=== PATIENT | female | born 2000 | race African-American/Black ===

== ENCOUNTER 2018-02-13 16:10 | Emergency (ER) | payer OTHER ==
[~2018-02-13] VITALS: Ht 167.6 cm; Wt 74.8 kg
[~2018-02-13 16:10] MED LIST: ABILIFY 5 MG TAB5 MG PO; BACTRIM DS TAB1 EACH PO; DIFLUCAN150 M1 PO; DOXYCYCLINE 10100 MG PO; FLAGYL500 MG PO; IBUPROFEN 800800 M1 PO; KEFLEX500 M1 PO; LEVAQUIN 500 M500 M2 PO; MEDROLDOSEPACK PO; NAPROSYN500 MG PO; PROAIR HFA8.5 GM IH; SEROQUEL 25 MG25 M1 PO; ZOFRAN ODT4 MG PO; ZPAK PO
[2018-02-13 16:27] LABS: URINE BILIRUBIN NEGATIVE (Negative); URINE BLOOD NEGATIVE (Negative); URINE CLARITY CLEAR; URINE COLOR YELLOW; URINE GLUCOSE-RANDOM NEGATIVE (Negative); URINE KETONES NEGATIVE (Negative); URINE LEUKOCYTES TRACE (Negative); URINE NITRITE NEGATIVE (Negative); URINE PROTEIN NEGATIVE (Negative); URINE UROBILINOGEN 0.2 E.U./dl (0.2-1.0)
[2018-02-13 16:44] LABS: BACTERIA 1-9 Few /HPF (None Seen); CASTS None Seen /LPF (None Seen); CRYSTALS None Seen /LPF (None Seen); SQUAMOUS 4-10 Moderate /LPF (0-3); URINE RBC 0-2 Rare /HPF (0-2); URINE WBC 0-5 Rare /HPF (0-5)
[2018-02-13] MEDS ORDERED: NABUMETONE 750750 M1 PO (17:13)
[2018-02-13] MEDS ORDERED: KEFLEX500 M1 PO (17:14)
[2018-02-13 17:32] VITALS: BP 113/66
== END 2018-02-13 17:33 | disposition home or self-care (01) ==
LOC: M.ERS 16:10
PROVIDERS: Nurse Practitioner Family
DX: N72 Inflammatory disease of cervix uteri (principal); S46.912A Strain of unspecified muscle, fascia and tendon at shoulder and upper arm level, left arm, initial encounter; X58.XXXA Exposure to other specified factors, initial encounter; Y93.89 Activity, other specified; Y92.89 Other specified places as the place of occurrence of the external cause; Y99.8 Other external cause status

== ENCOUNTER 2018-05-17 08:19 | Emergency (ER) | payer OTHER ==
[~2018-05-17] VITALS: Ht 167.6 cm; Wt 74.8 kg
[~2018-05-17 08:19] MED LIST changes: +NABUMETONE 750750 M1 PO
[2018-05-17 08:37] LABS: URINE BILIRUBIN NEGATIVE (Negative); URINE BLOOD NEGATIVE (Negative); URINE CLARITY CLEAR; URINE COLOR YELLOW; URINE GLUCOSE-RANDOM NEGATIVE (Negative); URINE KETONES NEGATIVE (Negative); URINE LEUKOCYTES-REFLEX 1+ (Negative); URINE NITRITE-REFLEX NEGATIVE (Negative); URINE PROTEIN NEGATIVE (Negative); URINE SPECIFIC GRAVITY 1.025 (1.005-1.030); URINE UROBILINOGEN 0.2 E.U./dl (0.2-1.0)
[2018-05-17 08:44] LABS: BACTERIA-REFLEX 1-9 Few /HPF (None Seen); CASTS None Seen /LPF (None Seen); MUCUS 4-6 Moderate strn/LPF (None Seen); SQUAMOUS 4-10 Moderate /LPF (0-3); URINE RBC 0-2 Rare /HPF (0-2); URINE WBC-REFLEX 0-5 Rare /HPF (0-5)
[2018-05-17 08:45] LABS: CRYSTALS None Seen /LPF (None Seen)
[2018-05-17] MEDS ORDERED: BACTRIM DS TAB1 EACH PO (09:15)
[2018-05-17 09:26] VITALS: BP 103/47
== END 2018-05-17 09:26 | disposition home or self-care (01) ==
LOC: M.ERS 08:19
PROVIDERS: Emergency Medicine Emergency Medical Services
DX: N39.0 Urinary tract infection, site not specified (principal); J45.909 Unspecified asthma, uncomplicated; F32.9 Major depressive disorder, single episode, unspecified; Z91.040 Latex allergy status; Z88.8 Allergy status to other drugs, medicaments and biological substances

== ENCOUNTER 2018-07-26 10:44 | Emergency (ER) | payer OTHER ==
[~2018-07-26] VITALS: Ht 167.6 cm; Wt 77.1 kg
[2018-07-26 11:05] LABS: URINE BILIRUBIN NEGATIVE (Negative); URINE BLOOD 3+ (Negative); URINE CLARITY CLEAR; URINE COLOR YELLOW; URINE GLUCOSE-RANDOM NEGATIVE (Negative); URINE KETONES NEGATIVE (Negative); URINE LEUKOCYTES-REFLEX NEGATIVE (Negative); URINE NITRITE-REFLEX NEGATIVE (Negative); URINE PROTEIN NEGATIVE (Negative); URINE SPECIFIC GRAVITY >= 1.030 (1.005-1.030); URINE UROBILINOGEN 0.2 E.U./dl (0.2-1.0)
[2018-07-26 11:18] LABS: SQUAMOUS >10 Many /LPF (0-3); URINE RBC >20 Many /HPF (0-2); URINE WBC-REFLEX 0-5 Rare /HPF (0-5)
[2018-07-26 11:19] LABS: CASTS None Seen /LPF (None Seen); CRYSTALS None Seen /LPF (None Seen); MUCUS >6 Heavy strn/LPF (None Seen)
[2018-07-26 11:32] LABS: ABSOLUTE LYMPHOCYTES 1.7 thou/uL (0.8-5.3); ABSOLUTE MONOCYTES 0.2 thou/uL (0.0-1.2); ABSOLUTE NEUTROPHILS 1.5 thou/uL (1.6-8.1); BASOPHILS 1.1 %; EOSINOPHILS 0.6 %; HEMATOCRIT 36.1 % (37.0-47.0); LYMPHOCYTES 47.8 %; MCH 28.5 pg (26.0-34.0); MCHC 33.2 g/dL (28.0-37.0); MCV 85.7 fL (80.0-100.0); MONOCYTES 7.1 %; MPV 7.9 fl. (7.2-11.1); NUCLEATED RBCS 0 /100WBC; PLATELET COUNT* 291 thou/uL (150-400); POLYS 43.4 %; RBC 4.22 mil/uL (4.20-5.00); RDW-CV 13.9 % (10.5-14.5); WBC 3.5 thou/uL (4.0-11.0)
[2018-07-26 11:43] LABS: ALBUMIN 3.6 g/dL (3.4-5.0); CALCIUM 8.9 mg/dL (8.5-10.1); CREATININE 0.8 mg/dL (0.6-1.3); POTASSIUM 3.7 mmol/L (3.5-5.1); TOTAL BILIRUBIN 0.2 mg/dL (<0.1-1.0)
[2018-07-26] MEDS ORDERED: NAPROSYN500 MG PO (12:02)
[2018-07-26] MEDS ORDERED: PROVERA10 MG PO (12:02)
[2018-07-26 12:04] LABS: APTT 28.6 Seconds (25.0-31.3); PROTIME 10.6 Seconds (9.20-11.50)
[2018-07-26 12:16] VITALS: BP 116/72
== END 2018-07-26 12:15 | disposition home or self-care (01) ==
LOC: M.ERS 10:44
PROVIDERS: Physician Assistant
DX: N93.9 Abnormal uterine and vaginal bleeding, unspecified (principal); J45.909 Unspecified asthma, uncomplicated; F32.9 Major depressive disorder, single episode, unspecified; Z91.040 Latex allergy status; Z88.1 Allergy status to other antibiotic agents; Z88.8 Allergy status to other drugs, medicaments and biological substances

== ENCOUNTER 2018-08-31 13:12 | Emergency (ER) | payer OTHER ==
[~2018-08-31] VITALS: Ht 167.6 cm; Wt 81.7 kg
[~2018-08-31 13:12] MED LIST changes: +PROVERA10 MG PO
[2018-08-31] MEDS ORDERED: IBUPROFEN 800800 M1 PO (15:32)
[2018-08-31 15:45] VITALS: BP 121/63
== END 2018-08-31 15:45 | disposition home or self-care (01) ==
LOC: M.ERS 13:12
DX: S93.491A Sprain of other ligament of right ankle, initial encounter (principal); S30.0XXA Contusion of lower back and pelvis, initial encounter; J45.909 Unspecified asthma, uncomplicated; F32.9 Major depressive disorder, single episode, unspecified; F17.210 Nicotine dependence, cigarettes, uncomplicated; Z87.440 Personal history of urinary (tract) infections; Z91.040 Latex allergy status; Z88.1 Allergy status to other antibiotic agents; Z88.8 Allergy status to other drugs, medicaments and biological substances; W18.39XA Other fall on same level, initial encounter; Y93.51 Activity, roller skating (inline) and skateboarding; Y92.89 Other specified places as the place of occurrence of the external cause; Y99.8 Other external cause status

== ENCOUNTER 2018-10-13 06:04 | Emergency (ER) | payer OTHER ==
[~2018-10-13] VITALS: Ht 167.6 cm; Wt 72.6 kg
[2018-10-13 06:32] LABS: URINE BILIRUBIN NEGATIVE (Negative); URINE BLOOD NEGATIVE (Negative); URINE CLARITY CLEAR; URINE COLOR YELLOW; URINE GLUCOSE-RANDOM NEGATIVE (Negative); URINE KETONES NEGATIVE (Negative); URINE LEUKOCYTES NEGATIVE (Negative); URINE NITRITE NEGATIVE (Negative); URINE PROTEIN NEGATIVE (Negative); URINE UROBILINOGEN 0.2 E.U./dl (0.2-1.0)
[2018-10-13 06:54] VITALS: BP 119/70
== END 2018-10-13 06:55 | disposition home or self-care (01) ==
LOC: M.ERS 06:04
PROVIDERS: Personal Emergency Response Attendant
DX: S20.222A Contusion of left back wall of thorax, initial encounter (principal); S80.212A Abrasion, left knee, initial encounter; S80.211A Abrasion, right knee, initial encounter; S60.410A Abrasion of right index finger, initial encounter; S40.212A Abrasion of left shoulder, initial encounter; J45.909 Unspecified asthma, uncomplicated; F32.9 Major depressive disorder, single episode, unspecified; Z88.1 Allergy status to other antibiotic agents; Z91.040 Latex allergy status; Y04.8XXA Assault by other bodily force, initial encounter; Y93.89 Activity, other specified; Y92.89 Other specified places as the place of occurrence of the external cause; Y99.8 Other external cause status

== ENCOUNTER 2018-11-10 12:13 | Emergency (ER) | payer OTHER ==
[~2018-11-10] VITALS: Ht 167.6 cm; Wt 75.3 kg
[2018-11-10] MEDS ORDERED: TESSALON PERLE100 MG PO (13:57)
[2018-11-10 14:08] VITALS: BP 117/74
== END 2018-11-10 14:09 | disposition home or self-care (01) ==
LOC: M.ERS 12:13
DX: J06.9 Acute upper respiratory infection, unspecified (principal); F32.9 Major depressive disorder, single episode, unspecified; J45.909 Unspecified asthma, uncomplicated; Z91.040 Latex allergy status

== ENCOUNTER 2018-12-25 11:56 | Emergency (ER) | payer OTHER ==
[~2018-12-25] VITALS: Ht 167.6 cm; Wt 69.0 kg
[~2018-12-25 11:56] MED LIST changes: +TESSALON PERLE100 MG PO
[2018-12-25 12:17] LABS: URINE BILIRUBIN NEGATIVE (Negative); URINE BLOOD 3+ (Negative); URINE CLARITY CLEAR; URINE COLOR YELLOW; URINE GLUCOSE-RANDOM NEGATIVE (Negative); URINE KETONES NEGATIVE (Negative); URINE LEUKOCYTES-REFLEX NEGATIVE (Negative); URINE NITRITE-REFLEX NEGATIVE (Negative); URINE PROTEIN TRACE (Negative); URINE SPECIFIC GRAVITY 1.025 (1.005-1.030); URINE UROBILINOGEN 0.2 E.U./dl (0.2-1.0)
[2018-12-25 12:31] LABS: ABSOLUTE LYMPHOCYTES 1.9 thou/uL (0.8-5.3); ABSOLUTE MONOCYTES 0.4 thou/uL (0.0-1.2); ABSOLUTE NEUTROPHILS 1.1 thou/uL (1.6-8.1); BASOPHILS 0.2 %; EOSINOPHILS 1.4 %; HEMATOCRIT 35.7 % (37.0-47.0); HEMOGLOBIN 12.3 gm/dL (12.0-15.0); LYMPHOCYTES 56.5 %; MCH 29.3 pg (26.0-34.0); MCHC 34.5 g/dL (28.0-37.0); MCV 84.9 fL (80.0-100.0); MONOCYTES 10.3 %; MPV 8.1 fl. (7.2-11.1); NUCLEATED RBCS 0 /100WBC; PLATELET COUNT* 311 thou/uL (150-400); POLYS 31.6 %; RBC 4.21 mil/uL (4.20-5.00); RDW-CV 13.9 % (10.5-14.5); WBC 3.4 thou/uL (4.0-11.0)
[2018-12-25 12:40] LABS: CASTS None Seen /LPF (None Seen); MUCUS 4-6 Moderate strn/LPF (None Seen); SQUAMOUS >10 Many /LPF (0-3)
[2018-12-25 12:41] LABS: CRYSTALS None Seen /LPF (None Seen); URINE WBC-REFLEX None Seen /HPF (0-5)
[2018-12-25] MEDS ORDERED: CLINDESSE5 GM VAG (13:18)
[2018-12-25] MEDS ORDERED: NAPROSYN500 MG PO (13:18)
[2018-12-25 13:34] VITALS: BP 119/74
== END 2018-12-25 13:36 | disposition home or self-care (01) ==
LOC: M.ERS 11:56
PROVIDERS: Physician Assistant
DX: B96.89 Other specified bacterial agents as the cause of diseases classified elsewhere (principal); N93.9 Abnormal uterine and vaginal bleeding, unspecified; J45.909 Unspecified asthma, uncomplicated; F32.9 Major depressive disorder, single episode, unspecified; F17.210 Nicotine dependence, cigarettes, uncomplicated; Z87.440 Personal history of urinary (tract) infections; Z91.040 Latex allergy status; Z88.1 Allergy status to other antibiotic agents; Z88.8 Allergy status to other drugs, medicaments and biological substances; N76.0 Acute vaginitis

== ENCOUNTER 2019-02-21 14:56 | Emergency (ER) | payer OTHER ==
[~2019-02-21] VITALS: Ht 167.6 cm; Wt 70.8 kg
[~2019-02-21 14:56] MED LIST changes: +CLINDESSE5 GM VAG
[2019-02-21 16:07] LABS: URINE BILIRUBIN NEGATIVE (Negative); URINE BLOOD NEGATIVE (Negative); URINE CLARITY CLEAR; URINE COLOR YELLOW; URINE GLUCOSE-RANDOM NEGATIVE (Negative); URINE KETONES NEGATIVE (Negative); URINE LEUKOCYTES-REFLEX NEGATIVE (Negative); URINE NITRITE-REFLEX NEGATIVE (Negative); URINE PROTEIN NEGATIVE (Negative); URINE SPECIFIC GRAVITY 1.015 (1.005-1.030); URINE UROBILINOGEN 0.2 E.U./dl (0.2-1.0)
[2019-02-21] MEDS ORDERED: CLEOCIN HCL300 MG PO (16:13)
[2019-02-21 16:25] VITALS: BP 128/71
== END 2019-02-21 16:27 | disposition home or self-care (01) ==
LOC: M.ERS 14:56
PROVIDERS: Nurse Practitioner Family
DX: N76.0 Acute vaginitis (principal); J45.909 Unspecified asthma, uncomplicated; F32.9 Major depressive disorder, single episode, unspecified; Z87.440 Personal history of urinary (tract) infections; Z91.040 Latex allergy status

== ENCOUNTER 2019-11-23 12:46 | Emergency (ER) | payer OTHER ==
[~2019-11-23] VITALS: Ht 167.6 cm; Wt 74.8 kg
[~2019-11-23 12:46] MED LIST changes: +CLEOCIN HCL300 MG PO
[2019-11-23] MEDS ORDERED: ZOLOFT 50 MG TA50 M1 PO (13:11)
[2019-11-23] MEDS ORDERED: BUSPIRONE HCL10 MG PO (13:12)
[2019-11-23 14:11] LABS: INFLUENZA A ANTIGEN Negative (Negative); INFLUENZA B ANTIGEN Negative (Negative)
[2019-11-23] MEDS ORDERED: NABUMETONE 750750 M1 PO (14:19)
[2019-11-23] MEDS ORDERED: AUGMENTIN 875-1 EACH PO (14:19)
[2019-11-23] MEDS ORDERED: ONDANSETRON HCL4 M2 PO (14:19)
[2019-11-23 14:37] VITALS: BP 111/66
== END 2019-11-23 14:38 | disposition home or self-care (01) ==
LOC: M.ERS 12:46
PROVIDERS: Nurse Practitioner Family
DX: J02.9 Acute pharyngitis, unspecified (principal); J45.909 Unspecified asthma, uncomplicated; Z91.040 Latex allergy status; Z87.440 Personal history of urinary (tract) infections

== ENCOUNTER 2020-02-08 15:16 | Emergency (ER) | payer OTHER ==
[~2020-02-08] VITALS: Ht 167.6 cm; Wt 74.8 kg
[~2020-02-08 15:16] MED LIST changes: +AUGMENTIN 875-1 EACH PO; +BUSPIRONE HCL10 MG PO; +ONDANSETRON HCL4 M2 PO; +ZOLOFT 50 MG TA50 M1 PO
[2020-02-08] MEDS ORDERED: ADHD MED (15:25)
[2020-02-08 15:52] LABS: URINE BILIRUBIN NEGATIVE (Negative); URINE BLOOD NEGATIVE (Negative); URINE CLARITY CLEAR; URINE COLOR YELLOW; URINE GLUCOSE-RANDOM NEGATIVE (Negative); URINE KETONES NEGATIVE (Negative); URINE NITRITE-REFLEX NEGATIVE (Negative); URINE PROTEIN NEGATIVE (Negative); URINE UROBILINOGEN 0.2 E.U./dl (0.2-1.0)
[2020-02-08 15:54] LABS: URINE LEUKOCYTES-REFLEX 2+ (Negative)
[2020-02-08 16:09] LABS: BACTERIA-REFLEX >30 Many /HPF (None Seen); CASTS None Seen /LPF (None Seen); CRYSTALS None Seen /LPF (None Seen); MUCUS 4-6 Moderate strn/LPF (None Seen); SQUAMOUS >10 Many /LPF (0-3); URINE RBC 0-2 Rare /HPF (0-2); URINE WBC-REFLEX 6-15 Few /HPF (0-5)
[2020-02-08] MEDS ORDERED: BACTRIM DS TAB1 EAC1 PO (16:52)
[2020-02-08] MEDS ORDERED: FLAGYL500 M1 PO (16:52)
[2020-02-08 17:00] VITALS: BP 120/72
== END 2020-02-08 17:01 | disposition home or self-care (01) ==
LOC: M.ERS 15:16
PROVIDERS: Physician Assistant
DX: N39.0 Urinary tract infection, site not specified (principal); N76.0 Acute vaginitis; J45.909 Unspecified asthma, uncomplicated; Z79.899 Other long term (current) drug therapy; Z91.040 Latex allergy status

== ENCOUNTER 2020-03-12 18:33 | Emergency (ER) | payer OTHER ==
[~2020-03-12] VITALS: Ht 167.6 cm; Wt 74.8 kg
[~2020-03-12 18:33] MED LIST changes: +ADHD MED; +BACTRIM DS TAB1 EAC1 PO; +FLAGYL500 M1 PO
[2020-03-12] MEDS ORDERED: MELOXICAM15 MG PO (18:41)
[2020-03-12] MEDS ORDERED: STRATTERA80 MG PO (18:42)
[2020-03-12] MEDS ORDERED: ZANAFLEX4 MG PO (19:12)
[2020-03-12] MEDS ORDERED: NABUMETONE 750750 M1 PO (19:12)
[2020-03-12 19:47] VITALS: BP 126/84
== END 2020-03-12 19:49 | disposition home or self-care (01) ==
LOC: M.ERS 18:33
DX: S93.691A Other sprain of right foot, initial encounter (principal); M25.562 Pain in left knee; M79.661 Pain in right lower leg; M79.662 Pain in left lower leg; J45.909 Unspecified asthma, uncomplicated; Z91.040 Latex allergy status; W10.8XXA Fall (on) (from) other stairs and steps, initial encounter; Y93.89 Activity, other specified; Y92.89 Other specified places as the place of occurrence of the external cause; Y99.8 Other external cause status

== ENCOUNTER 2020-06-06 17:08 | Emergency (ER) | payer OTHER ==
[~2020-06-06] VITALS: Ht 167.6 cm; Wt 74.8 kg
[~2020-06-06 17:08] MED LIST changes: +MELOXICAM15 MG PO; +STRATTERA80 MG PO; +ZANAFLEX4 MG PO
[2020-06-06 17:31] LABS: URINE BILIRUBIN NEGATIVE (Negative); URINE BLOOD NEGATIVE (Negative); URINE CLARITY CLEAR; URINE COLOR YELLOW; URINE GLUCOSE-RANDOM NEGATIVE (Negative); URINE KETONES NEGATIVE (Negative); URINE NITRITE-REFLEX NEGATIVE (Negative); URINE PROTEIN NEGATIVE (Negative); URINE UROBILINOGEN 0.2 E.U./dl (0.2-1.0)
[2020-06-06 17:32] LABS: URINE LEUKOCYTES-REFLEX 3+ (Negative)
[2020-06-06] MEDS ORDERED: SERTRALINE HCL100 MG PO (17:35)
[2020-06-06 17:36] LABS: SQUAMOUS >10 Many /LPF (0-3)
[2020-06-06 17:37] LABS: BACTERIA-REFLEX >30 Many /HPF (None Seen); CASTS None Seen /LPF (None Seen); CRYSTALS None Seen /LPF (None Seen); MUCUS None Seen strn/LPF (None Seen); URINE RBC None Seen /HPF (0-2); URINE WBC-REFLEX 6-15 Few /HPF (0-5)
[2020-06-06 17:50] LABS: ABSOLUTE BASOPHILS 0.1 thou/uL (0.0-0.2); ABSOLUTE LYMPHOCYTES 2.5 thou/uL (0.8-5.3); ABSOLUTE MONOCYTES 0.4 thou/uL (0.0-1.2); ABSOLUTE NEUTROPHILS 2.2 thou/uL (1.6-8.1); BASOPHILS 1.1 %; EOSINOPHILS 0.4 %; HEMATOCRIT 39.1 % (37.0-47.0); LYMPHOCYTES 47.8 %; MCH 28.8 pg (26.0-34.0); MCHC 33.1 g/dL (28.0-37.0); MCV 87.2 fL (80.0-100.0); MONOCYTES 8.1 %; MPV 7.4 fl. (7.2-11.1); NUCLEATED RBCS 0 /100WBC; PLATELET COUNT* 309 thou/uL (150-400); POLYS 42.6 %; RBC 4.49 mil/uL (4.20-5.00); RDW-CV 13.8 % (10.5-14.5); WBC 5.3 thou/uL (4.0-11.0)
[2020-06-06 18:01] LABS: CALCIUM 8.9 mg/dL (8.5-10.1); CREATININE 0.8 mg/dL (0.6-1.3); POTASSIUM 3.8 mmol/L (3.5-5.1)
[2020-06-06 18:05] LABS: TOTAL BILIRUBIN 0.1 mg/dL (<0.1-1.0); TOTAL PROTEIN 7.4 g/dL (6.4-8.2)
[2020-06-06] MEDS ORDERED: IBUPROFEN 800800 M1 PO (19:37)
[2020-06-06] MEDS ORDERED: BENTYL 10 MG CA10 M1 PO (19:37)
[2020-06-06] MEDS ORDERED: MACROBID 100 M100 M2 PO (19:38)
[2020-06-06 19:52] VITALS: BP 108/71
== END 2020-06-06 19:52 | disposition home or self-care (01) ==
LOC: M.ERS 17:08
PROVIDERS: Nurse Practitioner Family
DX: N83.202 Unspecified ovarian cyst, left side (principal); N39.0 Urinary tract infection, site not specified; R10.31 Right lower quadrant pain; J45.909 Unspecified asthma, uncomplicated; Z91.040 Latex allergy status; Z79.899 Other long term (current) drug therapy

== ENCOUNTER 2020-07-03 08:44 | Emergency (ER) | payer OTHER ==
[~2020-07-03] VITALS: Ht 167.6 cm; Wt 73.9 kg
[~2020-07-03 08:44] MED LIST changes: +BENTYL 10 MG CA10 M1 PO; +MACROBID 100 M100 M2 PO; +SERTRALINE HCL100 MG PO
[2020-07-03] MEDS ORDERED: BACTRIM DS TAB1 EAC1 PO (09:46)
[2020-07-03] MEDS ORDERED: FLEXERIL PO (09:46)
[2020-07-03 09:58] VITALS: BP 124/68
== END 2020-07-03 09:59 | disposition home or self-care (01) ==
LOC: M.ERS 08:44
DX: M25.561 Pain in right knee (principal); M25.551 Pain in right hip; M79.641 Pain in right hand; J45.909 Unspecified asthma, uncomplicated; Z91.040 Latex allergy status

== ENCOUNTER 2020-08-24 17:10 | Emergency (ER) | payer OTHER ==
[~2020-08-24] VITALS: Ht 167.6 cm; Wt 77.1 kg
[~2020-08-24 17:10] MED LIST changes: +FLEXERIL PO
[2020-08-24 17:54] LABS: URINE BILIRUBIN NEGATIVE (Negative); URINE BLOOD NEGATIVE (Negative); URINE CLARITY CLEAR; URINE COLOR YELLOW; URINE GLUCOSE-RANDOM NEGATIVE (Negative); URINE KETONES TRACE (Negative); URINE LEUKOCYTES-REFLEX NEGATIVE (Negative); URINE NITRITE-REFLEX NEGATIVE (Negative); URINE PROTEIN NEGATIVE (Negative); URINE UROBILINOGEN 0.2 E.U./dl (0.2-1.0)
[2020-08-24 18:48] VITALS: BP 134/77
== END 2020-08-24 18:48 | disposition home or self-care (01) ==
LOC: M.ERS 17:10
PROVIDERS: Nurse Practitioner Family
DX: N89.8 Other specified noninflammatory disorders of vagina (principal); Z20.2 Contact with and (suspected) exposure to infections with a predominantly sexual mode of transmission; J45.909 Unspecified asthma, uncomplicated; F32.9 Major depressive disorder, single episode, unspecified; F90.9 Attention-deficit hyperactivity disorder, unspecified type; Z79.899 Other long term (current) drug therapy; Z91.040 Latex allergy status

== ENCOUNTER 2020-10-01 17:34 | Emergency (ER) | payer BC ==
[~2020-10-01] VITALS: Ht 167.6 cm; Wt 74.8 kg
[2020-10-01 19:10] LABS: URINE BILIRUBIN NEGATIVE (Negative); URINE BLOOD NEGATIVE (Negative); URINE CLARITY CLEAR; URINE COLOR YELLOW; URINE GLUCOSE-RANDOM NEGATIVE (Negative); URINE KETONES NEGATIVE (Negative); URINE LEUKOCYTES-REFLEX NEGATIVE (Negative); URINE NITRITE-REFLEX NEGATIVE (Negative); URINE PROTEIN NEGATIVE (Negative); URINE SPECIFIC GRAVITY >= 1.030 (1.005-1.030); URINE UROBILINOGEN 0.2 E.U./dl (0.2-1.0)
[2020-10-01 19:18] LABS: AMP/METHAMP Negative (Negative); BARBITURATES Negative (Negative); BENZODIAZEPINES Negative (Negative); COCAINE Negative (Negative); METHADONE Negative (Negative); OPIATES Negative (Negative); PCP Negative (Negative); THC Negative (Negative)
[2020-10-01 20:13] VITALS: BP 120/64
== END 2020-10-01 20:13 | disposition home or self-care (01) ==
LOC: M.ERS 17:34
PROVIDERS: Physician Assistant
DX: S16.1XXA Strain of muscle, fascia and tendon at neck level, initial encounter (principal); S09.8XXA Other specified injuries of head, initial encounter; R10.2 Pelvic and perineal pain; J45.909 Unspecified asthma, uncomplicated; Z91.040 Latex allergy status; Z79.899 Other long term (current) drug therapy; Y08.89XA Assault by other specified means, initial encounter; Y93.89 Activity, other specified; Y92.89 Other specified places as the place of occurrence of the external cause; Y99.8 Other external cause status

== ENCOUNTER 2020-11-13 10:31 | Emergency (ER) | payer BC ==
[~2020-11-13] VITALS: Ht 167.6 cm; Wt 74.8 kg
[2020-11-13] MEDS ORDERED: ADDERALL 30 MG30 MG PO (10:52)
[2020-11-13] MEDS ORDERED: FAMOTIDINE 20 M20 MG PO (11:22)
[2020-11-13] MEDS ORDERED: HYDROXYZINE HCL25 M2 PO (11:22)
[2020-11-13] MEDS ORDERED: PREDNISONE 20 M20 MG PO (11:22)
[2020-11-13 11:41] VITALS: BP 122/84
== END 2020-11-13 11:43 | disposition home or self-care (01) ==
LOC: M.ERS 10:31
DX: R21 Rash and other nonspecific skin eruption (principal); T78.49XA Other allergy, initial encounter; J45.909 Unspecified asthma, uncomplicated; Z91.040 Latex allergy status; X58.XXXA Exposure to other specified factors, initial encounter

== ENCOUNTER 2020-12-08 14:44 | Emergency (ER) | payer BC ==
[~2020-12-08] VITALS: Ht 167.6 cm; Wt 74.8 kg
[~2020-12-08 14:44] MED LIST changes: +ADDERALL 30 MG30 MG PO; +FAMOTIDINE 20 M20 MG PO; +HYDROXYZINE HCL25 M2 PO; +PREDNISONE 20 M20 MG PO
[2020-12-08] MEDS ORDERED: VENTOLIN HFA 1818 GM INH (16:13)
[2020-12-08] MEDS ORDERED: PREDNISONE50 MG PO (16:13)
[2020-12-08 16:26] VITALS: BP 109/73
== END 2020-12-08 16:27 | disposition home or self-care (01) ==
LOC: M.ERS 14:44
DX: J45.909 Unspecified asthma, uncomplicated (principal); F17.210 Nicotine dependence, cigarettes, uncomplicated; Z91.040 Latex allergy status

== ENCOUNTER 2021-02-24 10:13 | Emergency (ER) | payer BC ==
[~2021-02-24] VITALS: Ht 167.6 cm; Wt 70.3 kg
[~2021-02-24 10:13] MED LIST changes: +PREDNISONE50 MG PO; +VENTOLIN HFA 1818 GM INH
[2021-02-24 10:37] LABS: URINE BILIRUBIN NEGATIVE (Negative); URINE BLOOD NEGATIVE (Negative); URINE CLARITY CLEAR; URINE COLOR YELLOW; URINE GLUCOSE-RANDOM NEGATIVE (Negative); URINE KETONES NEGATIVE (Negative); URINE LEUKOCYTES-REFLEX TRACE (Negative); URINE PROTEIN 1+ (Negative); URINE SPECIFIC GRAVITY 1.015 (1.005-1.030); URINE UROBILINOGEN 0.2 E.U./dl (0.2-1.0)
[2021-02-24 10:42] LABS: URINE NITRITE-REFLEX POSITIVE (Negative)
[2021-02-24 10:49] LABS: BACTERIA-REFLEX 1-9 Few /HPF (None Seen); CASTS None Seen /LPF (None Seen); CRYSTALS None Seen /LPF (None Seen); MUCUS >6 Heavy strn/LPF (None Seen); SQUAMOUS >10 Many /LPF (0-3); URINE RBC 0-2 Rare /HPF (0-2); URINE WBC-REFLEX 0-5 Rare /HPF (0-5); YEAST-REFLEX Present (None Seen)
[2021-02-24] MEDS ORDERED: FLAGYL500 M1 PO (11:06)
[2021-02-24] MEDS ORDERED: DIFLUCAN150 M1 PO (11:06)
[2021-02-24] MEDS ORDERED: SUPRAX400 M1 PO (11:06)
[2021-02-24] MEDS ORDERED: DOXYCYCLINE 10100 MG PO (11:06)
[2021-02-24 11:22] VITALS: BP 119/79
== END 2021-02-24 11:23 | disposition home or self-care (01) ==
LOC: M.ERS 10:13
PROVIDERS: Family Medicine
DX: N76.0 Acute vaginitis (principal); N39.0 Urinary tract infection, site not specified; Z11.3 Encounter for screening for infections with a predominantly sexual mode of transmission; J45.909 Unspecified asthma, uncomplicated; Z91.040 Latex allergy status

== ENCOUNTER 2021-06-30 11:24 | Emergency (ER) | payer MEDICAID, OTHER ==
[~2021-06-30] VITALS: Ht 170.2 cm; Wt 77.1 kg
[~2021-06-30 11:24] MED LIST changes: +SUPRAX400 M1 PO
[2021-06-30 11:54] LABS: ABSOLUTE BASOPHILS 0.1 thou/uL (0.0-0.2); ABSOLUTE EOSINOPHILS 0.1 thou/uL (0.0-0.7); ABSOLUTE LYMPHOCYTES 1.5 thou/uL (0.8-5.3); ABSOLUTE MONOCYTES 0.2 thou/uL (0.0-1.2); ABSOLUTE NEUTROPHILS 1.9 thou/uL (1.6-8.1); BASOPHILS 1.5 %; EOSINOPHILS 1.4 %; HEMATOCRIT 36.3 % (37.0-47.0); HEMOGLOBIN 12.3 gm/dL (12.0-15.0); LYMPHOCYTES 40.4 %; MCH 29.4 pg (26.0-34.0); MCHC 33.9 g/dL (28.0-37.0); MCV 86.9 fL (80.0-100.0); MONOCYTES 6.4 %; MPV 7.4 fl. (7.2-11.1); NUCLEATED RBCS 0 /100WBC; PLATELET COUNT* 267 thou/uL (150-400); POLYS 50.3 %; RBC 4.17 mil/uL (4.20-5.00); RDW-CV 13.8 % (10.5-14.5); WBC 3.8 thou/uL (4.0-11.0)
[2021-06-30 11:55] LABS: URINE BILIRUBIN NEGATIVE (Negative); URINE BLOOD TRACE (Negative); URINE CLARITY SL CLOUDY; URINE COLOR RED; URINE GLUCOSE-RANDOM NEGATIVE (Negative); URINE KETONES NEGATIVE (Negative); URINE NITRITE-REFLEX NEGATIVE (Negative); URINE PROTEIN NEGATIVE (Negative); URINE SPECIFIC GRAVITY 1.025 (1.005-1.030); URINE UROBILINOGEN 0.2 E.U./dl (0.2-1.0)
[2021-06-30 11:58] LABS: SQUAMOUS 4-10 Moderate /LPF (0-3); URINE LEUKOCYTES-REFLEX 2+ (Negative); URINE RBC 3-10 Few /HPF (0-2); URINE WBC-REFLEX 6-15 Few /HPF (0-5)
[2021-06-30 11:59] LABS: CASTS None Seen /LPF (None Seen); CRYSTALS None Seen /LPF (None Seen)
[2021-06-30 12:02] LABS: CALCIUM 8.3 mg/dL (8.5-10.1); CREATININE 0.6 mg/dL (0.6-1.3); POTASSIUM 4.2 mmol/L (3.5-5.1)
[2021-06-30 12:07] LABS: ALBUMIN 3.3 g/dL (3.4-5.0); TOTAL BILIRUBIN 0.2 mg/dL (<0.1-1.0); TOTAL PROTEIN 6.8 g/dL (6.4-8.2)
[2021-06-30] MEDS ORDERED: CEPHALEXIN500 MG PO (13:21)
[2021-06-30 13:34] VITALS: BP 97/53
== END 2021-06-30 13:36 | disposition home or self-care (01) ==
LOC: M.ERS 11:24
PROVIDERS: Physician Assistant
DX: O46.92 Antepartum hemorrhage, unspecified, second trimester (principal); O23.42 Unspecified infection of urinary tract in pregnancy, second trimester; N39.0 Urinary tract infection, site not specified; O99.512 Diseases of the respiratory system complicating pregnancy, second trimester; J45.909 Unspecified asthma, uncomplicated; O99.342 Other mental disorders complicating pregnancy, second trimester; F32.9 Major depressive disorder, single episode, unspecified; F90.9 Attention-deficit hyperactivity disorder, unspecified type; Z87.42 Personal history of other diseases of the female genital tract; Z3A.14 14 weeks gestation of pregnancy; Z79.2 Long term (current) use of antibiotics; Z79.899 Other long term (current) drug therapy; Z91.040 Latex allergy status